=== PATIENT | female | born 1940 | race Caucasian/White ===

== ENCOUNTER → 2016-09-28 | Outpatient (CLI) | payer OTHER | LOC: KOH-I 10:38 | DX: M54.5 Low back pain (principal); M54.2 Cervicalgia; M47.892 Other spondylosis, cervical region; M47.896 Other spondylosis, lumbar region | CPT/HCPCS: 72050; 72110 ==

== ENCOUNTER 2020-06-19 11:26 | Inpatient (IN) | payer OTHER ==
[~2020-06-19] VITALS: Ht 162.6 cm; Wt 99.8 kg
[~2020-06-19 11:26] MED LIST: DITROPAN 5 MG TA5 MG PO; PREPARATION H1 EAC1 PR; ZITHROMAX250 MG PO
[2020-06-19 13:38] LABS: HEMOGLOBIN 15.9 gm/dl (12.3-15.3); RED BLOOD COUNT 5.05 M/UL (4.00-5.10); WHITE BLOOD COUNT 6.1 K/UL (4.5-11.0)
[2020-06-19 14:08] LABS: BUN/CREATININE RATIO 18 (0-10)
[2020-06-19] MEDS ORDERED: IPRAT-ALBUT 0.5-3 ML INH (15:47)
[2020-06-19] MEDS ORDERED: LINZESS290 MCG PO (16:29)
[2020-06-19] MEDS ORDERED: ASPIRIN CHEWABL81 MG PO (16:29)
[2020-06-19] MEDS ORDERED: ALDACTONE50 MG PO (16:29)
[2020-06-19] MEDS ORDERED: CELEXA20 MG PO (16:29)
[2020-06-19] MEDS ORDERED: IMDUR ER TAB 6060 MG PO (16:30)
[2020-06-19] MEDS ORDERED: ZOCOR20 MG PO (16:31)
[2020-06-19] MEDS ORDERED: ACCUPRIL20 MG PO (16:31)
[2020-06-19] MEDS ORDERED: LOPRESSOR50 MG PO (16:31)
[2020-06-19] MEDS ORDERED: MAGNESIUM250 M1 PO (16:32)
[2020-06-19] MEDS ORDERED: HYDROCHLOROTHIA25 MG PO (16:32)
[2020-06-19] MEDS ORDERED: VITAMIN C500 M4 PO (16:32)
[2020-06-19] MEDS ORDERED: VITAMIN D325 MC6 PO (16:33)
[2020-06-19] MEDS ORDERED: VITAMIN B-121000 MCG PO (16:33)
[2020-06-20 03:36] LABS: HEMOGLOBIN 13.6 gm/dl (12.3-15.3); RED BLOOD COUNT 4.24 M/UL (4.00-5.10); WHITE BLOOD COUNT 3.3 K/UL (4.5-11.0)
[2020-06-20 14:07] LABS: ACINETOBACTER BAUMANNII Not Detected (Negative); CANDIDA ALBICANS Not Detected (Negative); CANDIDA KRUSEI Not Detected (Negative); CANDIDA TROPICALIS Not Detected (Negative); ENTEROCOCCUS Not Detected (Negative); ESCHERICHIA COLI Not Detected (Negative); HAEMOPHILUS INFLUENZAE Not Detected (Negative); KLEBSIELLA OXYTOCA Not Detected (Negative); KLEBSIELLA PNEUMONIAE Not Detected (Negative); KPC-CARBAPENEM-RESISTANCE GENE Not Detected (Negative); PROTEUS Not Detected (Negative); PSEUDOMONAS AERUGINOSA Not Detected (Negative); SERRATIA MARCESANS Not Detected (Negative); STAPHYLOCOCCUS AUREUS Not Detected (Negative); STREP AGALACTIAE (GROUP B) Not Detected (Negative); STREP PYOGENES (GROUP A) Not Detected (Negative); STREPTOCOCCUS Not Detected (Negative); mecA (METHICILLIN RESIST GENE Not Detected (Negative); vanA/B (VANCOMYCIN RESIST GENE Not Detected (Negative)
[2020-06-20 15:29] LABS: STAPHYLOCOCCUS DETECTED (Negative)
[2020-06-21 04:38] LABS: RED BLOOD COUNT 3.85 M/UL (4.00-5.10)
[2020-06-21 04:48] LABS: WHITE BLOOD COUNT 7.5 K/UL (4.5-11.0)
[2020-06-22 05:13] LABS: HEMOGLOBIN 11.7 gm/dl (12.3-15.3); RED BLOOD COUNT 3.77 M/UL (4.00-5.10); WHITE BLOOD COUNT 6.9 K/UL (4.5-11.0)
--- NOTE | 2020-06-22 14:15 | NUR ---
WENT INTO PATIENT ROOM TO DISCUSESS CODE STATUS,PER PATIENT BEING UNSURE AND PATIENT STATES PATIENT WISHES TO STAY A FULL CODE UNTIL HAVING DISCUSSION WITH FAMILY. I EXPLAINED TO PATIENT THAT SHE WOULD BE A FULL CODE UNTIL SHE DECIDED OTHER CAR, AND THIS MEANT SHE WOULD RECIEVE CPR, PATIENT AKNOWLEDGED UNDERTANDING OF MEANINGING OF FULL CODE STATUES.
[2020-06-23 04:14] LABS: HEMOGLOBIN 11.8 gm/dl (12.3-15.3); RED BLOOD COUNT 3.72 M/UL (4.00-5.10); WHITE BLOOD COUNT 5.9 K/UL (4.5-11.0)
[2020-06-23] MEDS ORDERED: VIBRAMYCIN 100100 MG GT (12:57)
[2020-06-23] MEDS ORDERED: DEXAMETHASONE1 MG PO (12:57)
[2020-06-23] MEDS ORDERED: PROAIR HFA8.5 GM INH (12:57)
--- NOTE | 2020-06-23 15:45 | NUR ---
patients iv infiltrated, and iv was removed with catheter intact. Tried to start new Iv on patient. patient is on 4th dose of remdesiver, and patient has orders to be d/c after 4th dose is finished. patient refuses to be stuck anymore, and state she is going home.
== END 2020-06-23 16:27 | disposition home or self-care (01) | DRG 177 ==
LOC: ER1 11:26 → MED SURG 4 15:14 → CDU 15:14 → MED SURG 4 18:12
PROVIDERS: Internal Medicine; Physician Assistant; ADMIT Internal Medicine
PROC: 8E0ZXY6 Isolation (ICD-10-PCS; principal; 2020-06-19)
PROC: XW033E5 Introduction of Remdesivir Anti-infective into Peripheral Vein, Percutaneous Approach, New Technology Group 5 (ICD-10-PCS; 2020-06-19)
DX: U07.1 COVID-19 (principal); J12.82 Pneumonia due to coronavirus disease 2019; J96.01 Acute respiratory failure with hypoxia; E87.1 Hypo-osmolality and hyponatremia; I25.2 Old myocardial infarction; E11.9 Type 2 diabetes mellitus without complications; I25.10 Atherosclerotic heart disease of native coronary artery without angina pectoris; Z90.49 Acquired absence of other specified parts of digestive tract; E87.6 Hypokalemia; E86.0 Dehydration; I10 Essential (primary) hypertension
CPT/HCPCS: 0240U; 36415; 36600; 71045; 80053; 80202; 81001; 82550; 82553; 82728; 82803; 83036; 83605; 83874; 83880; 84439; 84443; 84484; 85025; 85379; 86140; 87040; 87077; 87150; 87186; 96365; 96375; 97162; 99285; J0696; J1100; J1650; J2543; J3370; J7030; J7070

== ENCOUNTER → 2021-03-11 | Outpatient (CLI) | payer OTHER ==
[~2021-03-11] MED LIST changes: +ACCUPRIL20 MG PO; +ALDACTONE50 MG PO; +ASPIRIN CHEWABL81 MG PO; +CELEXA20 MG PO; +DEXAMETHASONE1 MG PO; +HYDROCHLOROTHIA25 MG PO; +IMDUR ER TAB 6060 MG PO; +IPRAT-ALBUT 0.5-3 ML INH; +LINZESS290 MCG PO; +LOPRESSOR50 MG PO; +MAGNESIUM250 M1 PO; +PROAIR HFA8.5 GM INH; +VIBRAMYCIN 100100 MG GT; +VITAMIN B-121000 MCG PO; +VITAMIN C500 M4 PO; +VITAMIN D325 MC6 PO; +ZOCOR20 MG PO
== END ==
LOC: KOH-I 11:16
DX: N18.30 Chronic kidney disease, stage 3 unspecified (principal)
CPT/HCPCS: 76775

== ENCOUNTER 2021-06-04 07:43 | Observation (INO) | payer OTHER ==
[~2021-06-04] VITALS: Ht 160 cm; Wt 84.2 kg
[~2021-06-04 07:43] MED LIST changes: -IMDUR ER TAB 6060 MG PO; +ISOSORBIDE MONO60 MG PO
[2021-06-04 08:51] LABS: RED BLOOD COUNT 4.42 M/UL (4.00-5.10); WHITE BLOOD COUNT 10.1 K/UL (4.5-11.0)
[2021-06-04 09:14] LABS: BUN/CREATININE RATIO 12 (0-10)
[2021-06-04] MEDS ORDERED: FIBER TABS625 MG PO (10:51)
[2021-06-04] MEDS ORDERED: COLACE CLEAR50 MG PO (10:53)
[2021-06-04] MEDS ORDERED: MEGA BIOTIN10000 MCG PO (11:54)
[2021-06-04] MEDS ORDERED: PRESERVISION A1 EAC2 PO (11:55)
[2021-06-05 03:05] LABS: HEMOGLOBIN 12.6 gm/dl (12.3-15.3); RED BLOOD COUNT 4.06 M/UL (4.00-5.10); WHITE BLOOD COUNT 10.1 K/UL (4.5-11.0)
[2021-06-05] MEDS ORDERED: ALDACTONE50 MG PO (14:57)
[2021-06-05] MEDS ORDERED: ZOCOR20 MG PO ×2 (14:57→17:13)
[2021-06-05] MEDS ORDERED: MEGA BIOTIN10000 MCG PO (14:57)
[2021-06-05] MEDS ORDERED: COLACE CLEAR50 MG PO (14:57)
[2021-06-05] MEDS ORDERED: PRESERVISION A1 EAC2 PO (14:57)
[2021-06-05] MEDS ORDERED: MAGNESIUM250 M1 PO (14:57)
[2021-06-05] MEDS ORDERED: LOPRESSOR 25 MG25 MG PO ×2 (14:57→17:13)
[2021-06-05] MEDS ORDERED: ISOSORBIDE MONO60 MG PO (14:57)
[2021-06-05] MEDS ORDERED: XARELTO20 MG PO (14:57)
[2021-06-05] MEDS ORDERED: DITROPAN 5 MG TA5 MG PO (14:57)
[2021-06-05] MEDS ORDERED: CEFUROXIME250 MG PO (14:57)
[2021-06-05] MEDS ORDERED: FIBER TABS625 MG PO (14:57)
[2021-06-05] MEDS ORDERED: CELEXA20 MG PO (14:57)
[2021-06-05] MEDS ORDERED: ASPIRIN EC81 MG PO (17:13)
== END 2021-06-05 18:21 | disposition home or self-care (01) ==
LOC: ER1 07:43 → PROG CARE 09:53 → CDU 09:53 → PROG CARE 21:02
PROVIDERS: Emergency Medicine; Physician Assistant Medical; ADMIT Internal Medicine
DX: R07.89 Other chest pain (principal); I25.10 Atherosclerotic heart disease of native coronary artery without angina pectoris; I48.0 Paroxysmal atrial fibrillation; I12.9 Hypertensive chronic kidney disease with stage 1 through stage 4 chronic kidney disease, or unspecified chronic kidney disease; E11.22 Type 2 diabetes mellitus with diabetic chronic kidney disease; N18.30 Chronic kidney disease, stage 3 unspecified; I08.2 Rheumatic disorders of both aortic and tricuspid valves; E66.9 Obesity, unspecified; E87.1 Hypo-osmolality and hyponatremia; Z91.041 Radiographic dye allergy status; Z91.013 Allergy to seafood; Z95.5 Presence of coronary angioplasty implant and graft; Z20.822 Contact with and (suspected) exposure to COVID-19; Z90.49 Acquired absence of other specified parts of digestive tract; R94.31 Abnormal electrocardiogram [ECG] [EKG]; I25.2 Old myocardial infarction
CPT/HCPCS: ECHO; 36415; 71045; 80048; 80053; 81001; 82550; 82553; 82962; 83735; 83874; 84439; 84443; 84484; 85025; 85027; 85610; 85730; 93005; 93306; G0378; J0696; J1650; J2060; J3475; U0002